=== PATIENT | male | born 1990 ===

== ENCOUNTER 2019-04-21 22:38 | Emergency (ER) | payer MEDICAID ==
[~2019-04-21] VITALS: Ht 172.7 cm; Wt 68.0 kg
== END 2019-04-22 00:15 | disposition home or self-care (01) ==
LOC: ER 22:38
DX: S00.03XA Contusion of scalp, initial encounter (principal); W18.30XA Fall on same level, unspecified, initial encounter
CPT/HCPCS: 70450; 99284-25